=== PATIENT | female | born 1960 | race Caucasian/White ===

== ENCOUNTER 2017-10-30 12:46 | Day surgery (SDC) | payer OTHER ==
[2017-10-30] MEDS ORDERED: LIDOCAINE 2% (SDV) 5 ML INJ (13:29)
[2017-10-30] MEDS ORDERED: PROPOFOL 40 ML (13:29)
== END 2017-10-30 15:36 | disposition home or self-care (01) ==
LOC: GIL 12:46
DX: Z12.11 Encounter for screening for malignant neoplasm of colon (principal); I10 Essential (primary) hypertension; E03.9 Hypothyroidism, unspecified; E66.01 Morbid (severe) obesity due to excess calories; Z68.41 Body mass index [BMI] 40.0-44.9, adult
CPT/HCPCS: 45378